=== PATIENT | female | born 1970 | race Caucasian/White ===

== ENCOUNTER 2021-12-23 12:11 | Emergency (ER) | payer SELFPAY ==
[~2021-12-23] VITALS: Ht 167.6 cm; Wt 56.0 kg
[2021-12-23] VITALS (13 sets, daily range): BP systolic 122–154; BP diastolic 55–106
[2021-12-23] MEDS ORDERED: NAPROXEN500 MG PO (14:29)
== END 2021-12-23 15:25 | disposition home or self-care (01) | DRG 563 ==
LOC: ED 12:11
PROC: 2W3TX1Z Immobilization of Left Foot using Splint (ICD-10-PCS; principal; 2021-12-23)
DX: S92.415A Nondisplaced fracture of proximal phalanx of left great toe, initial encounter for closed fracture (principal); X50.0XXA Overexertion from strenuous movement or load, initial encounter; Y93.11 Activity, swimming; Y92.008 Other place in unspecified non-institutional (private) residence as the place of occurrence of the external cause